=== PATIENT | female | born 1975 | race Caucasian/White ===

== ENCOUNTER 2016-07-03 22:25 | Emergency (ER) | payer SELFPAY ==
[2016-07-03 23:12] VITALS: TEMP 98.3; BMI 47.1
[2016-07-03] MEDS ORDERED: SODIUM CHLORIDE 0.9% 3 ML FLUSH FLUSH PRN (23:35)
--- NOTE | 2016-07-03 23:40 | EDPRACDOC ---
- General Information Chief Complaint: Flu-Like Symptoms Stated Complaint: COUGH/SHORTNESS OF BREATH Time Seen by Provider: 07/03/16 23:22 Information Source: Patient Home Medications: Home Medications Diclofenac Sodium 75 mg PO BID 09/12/13 Levothyroxine Sodium 137 mcg PO DAILY 09/12/13 Hydrochlorothiazide 12.5 mg PO DAILY 06/01/15 Gabapentin 300 mg PO TID 02/12/16 Albuterol Sulfate [Proair Hfa] 2 puff INH Q4 PRN #1 inhaler 07/04/16 Azithromycin [Zithromax] 250 mg PO DAILY #6 tablet 07/04/16 Hydrocodone Bit/Acetaminophen [Hydrocodon-Acetaminophen 5-325] 1 tab PO Q6H PRN #12 tab 07/04/16 Allergies/Adverse Reactions: Allergies Allergy/AdvReac Type Severity Reaction Status Date / Time Penicillins Allergy Severe RASH Verified 07/03/16 23:11 aspirin AdvReac Severe Hypertensio Verified 07/03/16 23:11 n rofecoxib [From Vioxx] AdvReac Severe GI BLEED Verified 07/03/16 23:11 cyclobenzaprine HCl AdvReac Headache Verified 07/03/16 23:11 [From Flexeril] - History of Present Illness Shortness of Breath: Moderate Relevant History: Reports: Asthma Cough: Reports: Productive Rhinorrhea: Reports: Clear Ear Symptoms: Reports: None SOB Worsens with: Reports: Exertion, Other (deep breathing) SOB Improves with: Reports: Rest Recently treated infections:: Reports: URI. 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 Denies: Substance Use Disorder Systemic History: Reports: Hypothyroidism Surgical History: Reports: Cholecystectomy, Hysterectomy, Other (C-spine fusion , bilateral tubal ligation, R Achilles tendon lengthened) - Family Medical History Reports: Hypertension (mother, sister, brother), Diabetes (MGM), Cancer (PGF- brain tumor), Cardiac Disorders (father- valvular heart disease MGM-CHF), Respiratory Disorders (Dad- COPD), Renal Disease (Dad- CRF). Denies: Stroke - Social Medical History Smoking Status: Never smoker Social History: Denies: Substance Use Disorder EDM Review of Systems - Review of Systems ROS Negative Except as Marked: Yes All systems reviewed and were negative except as marked - Physical Exam Constitutional: Alert (Awake), Other (appears mildly dyspneic, obese) Oriented to: Time, Person, Place Last recorded Vital Signs: Last Vital Signs Temp 98.3 F 07/03/16 23:07 Pulse 70 07/03/16 23:07 Resp 20 07/03/16 23:14 BP 144/65 07/03/16 23:07 Pulse Ox 100 07/03/16 23:07 Oxygen Pulse Oxygen Saturation 100 O2 Device Room Air Oxygen Flow Rate Fraction of Inspired Oxygen ( FIO2) - HEENT Head: Normal ( normocephalic) Eye Exam: Normal (PERRL, EOMI, Sclera white) Oropharynx: Normal (Pharynx:Moist without exudate,Gums-no swelling) Tympanic Membrane: Normal ENT EAC: Normal TMJ: Normal Nose: No Symptoms Reported (septum midline) Neck: Normal (FROM, trachea at midline) - Respiratory/Cardiovascular Respiratory: Normal - CTA (BBS clear to auscultation without adventitious sounds ) Cardiovascular: Normal (RRR without murmur, gallop or rub) - GI Auscultation: Normal (NABS) Palpation: Normal (Soft,No rebound or guarding, non distended) Tenderness: Non tender Saleem's Sign: Negative - Musculoskeletal Back: Normal (Non-Tender) Extremities: Normal (Normal tone, Pulses 2+ No cyanosis or edema, FROM) - Integumentary Skin: Warm, Dry, Other (mild cyanosis of the palms of the hands. throughout the distribution of the hands, the hnds are pink with adequate cap refill. the radial pulses are palpable.) Lymphatics: Normal (no adenopathy) - Neurologic Memory Impaired: Normal Motor Function: Normal (Normal tone, Pulses 2+ No cyanosis or edema, FROM) Cranial Nerve: Normal (CN II-X11 intact sensation, strength 5/5) Cerebellar: Normal Mood Description: Normal Perception: Normal ED SOB MDM - Re-evaluation Re-evaluation 1 Re-evaluation Time: 02:10 (hands are war and pink w/o appreciable cyanosis. cap refill is 1 sec. she may have transient vasospasm.) - Results Result Diagrams: 07/04/16 00:00 07/04/16 00:00 - EKG EKG #1 -: Yes EKG interpreted by me [place]: Normal Rhythm: NSR Block: None Hypertrophy: None ST: Normal - Diagnostic Imaging Chest Image interpreted by: Radiologist (bronchitis, no pna) Decision Time to Discharge: 02:11 - Departure Yes I personally saw and evaluated the patient. Disposition: Home Condition: Stable Final Diagnosis: Acute bronchitis, Dyspnea and respiratory abnormalities, Cyanosis, vasomotor Instructions: Acute Bronchitis (ED) Education/Counseling Given To: Patient Education/Counseling Given Regarding: Diagnosis, Treatment, Follow Up Prescriptions: Albuterol Sulfate [Proair Hfa] 2 puff INH Q4 PRN #1 inhaler PRN Reason: WHEEZE OR COUGH Azithromycin [Zithromax] 250 mg PO DAILY #6 tablet Hydrocodone Bit/Acetaminophen [Hydrocodon-Acetaminophen 5-325] 1 tab PO Q6H PRN #12 tab PRN Reason: pain or cough Additional Instructions: Follow up with your doctor on 07/19 as planned.
--- NOTE | 2016-07-04 00:06 | DIRPT ---
CLINICAL DATA: Cough and sickness for 3 weeks. EXAM: CHEST 2 VIEW COMPARISON: None. FINDINGS: Normal mediastinum and cardiac silhouette. Mild central bronchitic markings. Normal pulmonary vasculature. No effusion, infiltrate, or pneumothorax. IMPRESSION: Mild bronchial thickening centrally. No focal infiltrate. Electronically Signed By: Kana Field M.D. On: 07/04/2016 00:03
[2016-07-04 00:11] LABS: AUTOMATED BASOPHIL 0.5 % (0-2); AUTOMATED EOSINOPHIL 1.3 % (0-5); AUTOMATED LYMPH 38.9 % (17-44); AUTOMATED MONOCYTE 6.5 % (3-10); AUTOMATED NEUTROPHIL 52.8 % (45-76); MPV 9.4 fL (7.4-10.4)
[2016-07-04 00:35] LABS: BLOOD UREA NITROGEN 19 MG/DL (7-17); CALCIUM 8.9 MG/DL (8.4-10.2); CALCULATED OSMOLALITY 275 MOs/Kg (270-290); CHLORIDE 105 mEq/L (98-107); GLUCOSE 105 MG/DL (70-99); SODIUM LEVEL 142 mEq/L (137-146)
[2016-07-04 02:27] VITALS: BP 120/67; PULSE 67
[2016-07-04] MEDS ORDERED: SODIUM CHLORIDE 0.9% 3 ML FLUSH FLUSH SCH (06:00)
== END 2016-07-04 02:26 | disposition home or self-care (01) ==
LOC: ED 22:25
DX: J20.9 Acute bronchitis, unspecified (principal); R23.0 Cyanosis; I10 Essential (primary) hypertension; J45.909 Unspecified asthma, uncomplicated; F32.9 Major depressive disorder, single episode, unspecified; E03.9 Hypothyroidism, unspecified; Z79.899 Other long term (current) drug therapy
CPT/HCPCS: 36415; 71020; 80048; 84484; 85025; 85379; 85610; 85651; 85730; 93005; 99284